=== PATIENT | male | born 2000 | race Hispanic/Latino ===

== ENCOUNTER 2023-05-08 09:57 | Inpatient (IN) | payer OTHER ==
[~2023-05-08] VITALS: Ht 180.3 cm; Wt 117.8 kg
[2023-05-08 10:34] LABS: HEMATOCRIT 45.2 % (42.0-52.0); HEMOGLOBIN 14.6 g/dl (13.5-17.5); MEAN CORPUSCULAR HEMOGLOBIN 26.2 pg (27.0-33.0); MEAN CORPUSCULAR HGB CONC 32.3 g/dl (32.0-36.5); PLATELET COUNT, AUTOMATED 349 10^3/uL (150-450); RED BLOOD COUNT 5.58 10^6/uL (4.30-6.10); WHITE BLOOD COUNT 7.3 10^3/uL (4.0-10.0)
[2023-05-08 11:04] LABS: AMPHETAMINES LEVEL URINE NEGATIVE (NEGATIVE); BARBITURATES URINE NEGATIVE (NEGATIVE); BENZODIAZEPINES URINE NEGATIVE (NEGATIVE); CANNABINOIDS URINE NEGATIVE (NEGATIVE); COCAINE METABOLITE URINE NEGATIVE (NEGATIVE); METHADONE URINE NEGATIVE (NEGATIVE); OPIATES URINE NEGATIVE (NEGATIVE); PHENCYCLIDINE URINE NEGATIVE (NEGATIVE)
[2023-05-08 11:05] LABS: ETHYL ALCOHOL (ETHANOL) 0.003 % (0.000-0.010)
[2023-05-08 11:06] LABS: SALICYLATE LEVEL < 3.0 MG/DL (<30)
[2023-05-08 11:07] LABS: ALBUMIN 4.4 G/DL (3.2-5.2); ALKALINE PHOSPHATASE 94 U/L (46-116); ALT/SGPT 26 U/L (7.0-40); AST/SGOT 23 U/L (<34); BILIRUBIN,DIRECT 0.3 MG/DL (<0.4); BILIRUBIN,TOTAL 1.1 MG/DL (0.3-1.2); BLOOD UREA NITROGEN 13 MG/DL (9-23); CALCIUM LEVEL 9.7 MG/DL (8.5-10.1); CARBON DIOXIDE LEVEL 23 MMOL/L (20-31); CHLORIDE LEVEL 106 MMOL/L (98-107); CREATININE FOR GFR 0.94 MG/DL (0.70-1.30); GLOMERULAR FILTRATION RATE > 60.0 (>60); GLUCOSE, FASTING 94 MG/DL (60-100); POTASSIUM SERUM 4.4 MMOL/L (3.5-5.1); SODIUM LEVEL 137 MMOL/L (136-145); TOTAL PROTEIN 7.8 G/DL (5.7-8.2)
[2023-05-08 11:09] LABS: THYROID STIMULATING HORMONE 3.003 uIU/ML (0.55-4.78)
[2023-05-08] MEDS ORDERED: HOME MED LIST COMPLETE! XX SCH (14:45)
[2023-05-08] MEDS ORDERED: ACETAMINOPHEN TAB 650MG DOSE (2X325MG) PO PRN (20:25)
[2023-05-08] MEDS ORDERED: MAALOX 30 ML SUSP *UDC PO PRN (20:25)
[2023-05-08] MEDS ORDERED: traZODone 50 MG TAB PO PRN (20:25)
[2023-05-08] MEDS ORDERED: MOM 30ML SUSPENSION UDC PO PRN (20:25)
[2023-05-08 22:14] VITALS: BP 126/73; TEMP 98.3; O2SAT 99
[2023-05-09 06:29] VITALS: BP 110/70; TEMP 96.9; O2SAT 98
[2023-05-09] MEDS: SERTRALINE HCL 50 MG TAB PO SCH (10:07)
[2023-05-09 19:05] VITALS: BP 125/64; TEMP 97.7; O2SAT 98
[2023-05-10 06:35] VITALS: TEMP 97.3; O2SAT 97
[2023-05-10 19:01] VITALS: BP 136/76; TEMP 97.7
[2023-05-10] MEDS: OLANZapine 5 MG TAB PO SCH (21:26)
[2023-05-11 06:06] VITALS: BP 147/87; TEMP 97.3; O2SAT 98
[2023-05-11 18:28] VITALS: BP 138/75; TEMP 98
[2023-05-12 06:40] VITALS: BP 124/64; TEMP 97.2
[2023-05-12] MEDS ORDERED: traZODone 100 MG TAB PO PRN (10:20)
[2023-05-12 16:12] VITALS: BP 125/77; TEMP 97.7; O2SAT 98
[2023-05-13 06:17] VITALS: BP 124/75; TEMP 97.7; O2SAT 100
[2023-05-13 16:41] VITALS: BP 131/62; TEMP 97.8; O2SAT 97
[2023-05-13] MEDS: traZODone 50 MG TAB PO PRN (20:16)
[2023-05-14 06:31] VITALS: BP 117/58; TEMP 96.8; O2SAT 98
[2023-05-14 16:55] VITALS: BP 138/78; TEMP 97.9; O2SAT 99
[2023-05-14] MEDS: traZODone 100 MG TAB PO PRN (20:18)
[2023-05-15 06:56] VITALS: BP 130/81; TEMP 96.8; O2SAT 99
[2023-05-15] MEDS ORDERED: PILL CUTTER 1 EACH XX PRN (12:15)
[2023-05-15] MEDS: hydrOXYzine 50 MG TAB PO PRN (12:16)
[2023-05-15 18:33] VITALS: BP 114/59; TEMP 98.1; O2SAT 98
[2023-05-15] MEDS: OLANZapine 5 MG TAB PO SCH (20:07)
[2023-05-16 06:34] VITALS: BP 123/81; TEMP 97.3; O2SAT 98
[2023-05-16] MEDS: SERTRALINE HCL 50 MG TAB PO SCH (08:09)
[2023-05-16] MEDS: busPIRone 10 MG TAB PO SCH (12:09)
[2023-05-16 17:18] VITALS: BP 116/56; TEMP 98.2; O2SAT 98
[2023-05-17 06:09] VITALS: BP 123/72; TEMP 97.7; O2SAT 97
[2023-05-17 18:23] VITALS: BP 130/62; TEMP 97.1
[2023-05-18 06:28] VITALS: BP 128/72; TEMP 97.1; O2SAT 99
[2023-05-18 17:32] VITALS: BP 142/77; TEMP 97.7
[2023-05-19 06:45] VITALS: BP 118/73; TEMP 97.2; O2SAT 100
[2023-05-19] MEDS: SERTRALINE 100 MG TAB PO SCH (08:18)
[2023-05-19 16:15] VITALS: BP 129/61; TEMP 97.9; O2SAT 99
[2023-05-20 07:04] VITALS: BP 116/59; TEMP 96.6; O2SAT 98
[2023-05-20 16:42] VITALS: BP 129/60; TEMP 97.5; O2SAT 99
[2023-05-21 06:29] VITALS: BP 122/73; TEMP 97.7; O2SAT 99
[2023-05-21 15:38] VITALS: BP 119/77; TEMP 98.5; O2SAT 98
[2023-05-21] MEDS: IBUPROFEN 400MG TAB PO PRN (19:29)
[2023-05-22 06:39] VITALS: BP 114/80; TEMP 98; O2SAT 98
[2023-05-22 18:31] VITALS: BP 130/80; TEMP 97.9; O2SAT 99
[2023-05-23 06:19] VITALS: BP 123/79; TEMP 97.2; O2SAT 96
[2023-05-23 18:45] VITALS: BP 128/82; TEMP 97.2; O2SAT 99
[2023-05-24 06:39] VITALS: BP 103/64; TEMP 97.3; O2SAT 98
[2023-05-24 18:31] VITALS: BP 137/80; TEMP 97.6
[2023-05-25 06:41] VITALS: BP 121/71; TEMP 97.6; O2SAT 97
[2023-05-25 18:09] VITALS: BP 128/59; TEMP 98; O2SAT 98
[2023-05-25] MEDS: traZODone 50 MG TAB PO PRN (20:50)
[2023-05-26 06:36] VITALS: BP 130/86; TEMP 97.3; O2SAT 98
[2023-05-26 16:28] VITALS: BP 132/65; TEMP 97.9; O2SAT 100
[2023-05-27 06:45] VITALS: BP 117/65; TEMP 97.8; O2SAT 99
[2023-05-27 16:25] VITALS: BP 126/68; TEMP 98.2; O2SAT 100
[2023-05-27] MEDS: diphenhydrAMINE 25MG CAP PO PRN (22:38)
[2023-05-28 16:13] VITALS: BP 132/66; TEMP 97.9; O2SAT 98
[2023-05-29 06:17] VITALS: BP 116/70; TEMP 97.1; O2SAT 98
[2023-05-29 17:22] VITALS: BP 121/68; TEMP 98.3; O2SAT 99
[2023-05-30 06:23] VITALS: BP 95/54; TEMP 96.7; O2SAT 97
[2023-05-30] MEDS ORDERED: TRAZ-252 PO (09:20)
[2023-05-30] MEDS ORDERED: ZOLO100T PO (09:20)
[2023-05-30] MEDS ORDERED: BUSP10TA PO (09:20)
[2023-05-30] MEDS ORDERED: OLAN1TAB16 PO (09:20)
== END 2023-05-30 10:25 | disposition home or self-care (01) | DRG 885 ==
LOC: EDBD 09:57 → M ED 10:57 → M ED INP 20:24 → M PSY 21:42
PROVIDERS: ADMIT Psychiatry & Neurology Psychiatry; ATTEND Student in an Organized Health Care Education/Training Program
DX: F32.89 Other specified depressive episodes (principal); R45.851 Suicidal ideations; F43.20 Adjustment disorder, unspecified; F60.89 Other specific personality disorders; Z91.51 Personal history of suicidal behavior; F17.200 Nicotine dependence, unspecified, uncomplicated; Z20.822 Contact with and (suspected) exposure to COVID-19